=== PATIENT | female | born 1990 ===

== ENCOUNTER 2020-04-20 21:01 | Emergency (ER) | payer OTHER ==
[~2020-04-20] VITALS: Ht 157.5 cm; Wt 57.6 kg
[~2020-04-20 21:01] MED LIST: BACLOFEN20 MG PO; IBUPROFEN800 MG PO; IRON1 TAB PO; ORPH100T PO; PEPCID40 MG PO; PRENATAL PLUS1 EAC1 PO; ZOFRAN8 MG PO
[2020-04-20] MEDS ORDERED: ADVIL (22:02)
== END 2020-04-21 03:03 | disposition home or self-care (01) ==
LOC: ER 21:01
DX: R30.0 Dysuria (principal)